=== PATIENT | male | born 1955 | race African-American/Black ===

== ENCOUNTER 2017-09-08 12:52 | Emergency (ER) | payer OTHER ==
[~2017-09-08] VITALS: Ht 182.9 cm; Wt 104.5 kg
[~2017-09-08 12:52] MED LIST: ALDACTONE 25MG25 M1 PO; DILTIAZEM CD300 MG PO; FORT1000TA PO; FORTAMET1000 MG PO; GLUCOTROL 5M5 MG/TAB PO; HCTZ12.5TAB PO; LANTUS100 U/ML SC; LEVAQUIN 5500 MG/TA1 PO; LISINOPRIL40 MG PO; MICRO-K10 MEQ PO; NORVASC 10MG10 MG PO; ONGLYZA5 MG PO; VITAMIN D 1001000 IU PO; ZESTRIL40 MG PO
[2017-09-08 12:55] VITALS: TEMP 98.8
[2017-09-08 14:30] LABS: BASO % 0.6 % (0.0-2.0); EOS # 0.1 (0.0-0.7); EOS % 1.8 % (0-4.0); GRAN # 2.8 (1.4-6.5); GRAN % 54.3 % (42.2-75.2); LYMPH # 1.7 (1.2-3.4); LYMPH % 32.9 % (20.0-51.0); MEAN CELL VOLUME 79 fl (80.0-100.0); MEAN CORPUSCULAR HGB CONC 33 g/dl (33.0-37.0); MEAN PLATELET VOLUME 10.7 fl (7.4-10.4); MONO # 0.5 (0.1-0.6); MONO % 10.2 % (1.7-9.3); PLATELET COUNT 198 K/mm3 (130-400); RED BLOOD COUNT 4.43 M/mm3 (4.20-5.60); REDCELL DISTRIBUTION WIDTH-CV 12.1 % (11.5-14.5)
[2017-09-08 14:31] LABS: HEMATOCRIT 35.1 % (42.0-52.0); HEMOGLOBIN 11.7 g/dl (13.5-18.0); MEAN CORPUSCULAR HEMOGLOBIN 26 pg (27.0-31.0)
[2017-09-08 14:55] LABS: ALANINE AMINOTRANSFERASE 37 U/L (21-72); ALBUMIN 3.9 gm/dL (3.5-5.0); ALKALINE PHOSPHATASE 71 U/L (50-136); ANION GAP 8 mmol/L (7-16); AST,SGOT 24 U/L (15-37); BILIRUBIN,TOTAL 0.4 mg/dL (0.0-1.0); BLOOD UREA NITROGEN 28 mg/dL (9-20); CALCIUM 8.7 mg/dL (8.4-10.2); CARBON DIOXIDE 24 mmol/L (22-30); CHLORIDE 103 mmol/L (98-107); CREATININE, serum 1.29 mg/dL (0.66-1.25); GLUCOSE 255 mg/dL (74-106); POTASSIUM 4.2 mmol/L (3.4-5.0); SODIUM 134 mmol/L (137-145)
[2017-09-08 16:13] LABS: TROPONIN-I < 0.012 ng/mL (0.000-0.034)
[2017-09-08 16:36] VITALS: BP 121/80; PULSE 78
== END 2017-09-08 16:37 | disposition home or self-care (01) ==
LOC: COL.ER 12:52
PROVIDERS: Emergency Medicine
DX: R42 Dizziness and giddiness (principal); E11.9 Type 2 diabetes mellitus without complications; Z79.4 Long term (current) use of insulin
CPT/HCPCS: J7030